=== PATIENT | male | born 1960 | race Caucasian/White ===

== ENCOUNTER 2021-01-28 09:10 | Emergency (ER) | payer BC ==
[~2021-01-28] VITALS: Ht 175.3 cm; Wt 65.8 kg
[2021-01-28] MEDS ORDERED: KETOROLAC TROMETHAMINE 15 MG INJ IVP ONE ×2 (09:30→10:45)
[2021-01-28] MEDS ORDERED: ONDANSETRON 4 MG/2 ML VIAL IV ONE ×2 (09:30→10:45)
[2021-01-28] MEDS ORDERED: IV NORMAL SALINE 1000 ML BAG IV ONE (09:30)
[2021-01-28] MEDS ORDERED: ONDANSETRON 4 MG/2 ML VIAL ONE ×2 (09:31→10:54)
[2021-01-28] MEDS ORDERED: KETOROLAC TROMETHAMINE 15 MG INJ ONE ×2 (09:31→10:51)
[2021-01-28 09:43] LABS: HEMATOCRIT 45.1 % (36.7-47.1); PLATELET COUNT (AUTO) 186 K/uL (152-348)
[2021-01-28 09:49] LABS: CREATININE 0.9 mg/dL (0.6-1.3); POTASSIUM 3.6 mmol/L (3.5-5.1)
[2021-01-28 09:54] LABS: BILIRUBIN,DIRECT 0.1 mg/dL (0.0-0.2); BILIRUBIN,TOTAL 0.6 mg/dL (0.2-1.0); TOTAL PROTEIN, SERUM 7.8 g/dL (6.4-8.2)
[2021-01-28] MEDS ORDERED: MORPHINE SULFATE 4 MG/1 ML DISP.SYRIN ONE ×3 (09:56→10:53)
[2021-01-28] MEDS ORDERED: MORPHINE SULFATE 4 MG/1 ML DISP.SYRIN IV ONE ×3 (10:00→10:45)
[2021-01-28] MEDS ORDERED: TAMSULOSIN HCL 0.4 MG CAP.SR.24H PO ONE (10:00)
[2021-01-28] MEDS ORDERED: TAMSULOSIN HCL 0.4 MG CAP.SR.24H ONE (10:03)
[2021-01-28] MEDS ORDERED: CEphaleXIN 500 MG CAPSULE PO ONE (11:30)
[2021-01-28 11:33] LABS: *BILIRUBIN,URIN NEGATIVE (NEGATIVE); *BLOOD, URINE 3+ (NEGATIVE); *CLARITY,URINE CLEAR (CLEAR); *COLOR,URINE YELLOW (YELLOW); *KETONES,URINE NEGATIVE (NEGATIVE); *UROBILINOGEN,URINE 0.2 E.U./dl (NORMAL); LEUKOCYTE ESTERASE ,URINE NEGATIVE (NEGATIVE); NITRITE, URINE NEGATIVE (NEGATIVE); PH,URINE 6.5 (5.0-8.0); UGLUCOSE NEGATIVE (NEGATIVE)
[2021-01-28] MEDS ORDERED: CEphaleXIN 500 MG CAPSULE ONE (11:38)
[2021-01-28 11:45] LABS: *AMPHETAMINE, URINE NEGATIVE (NEGATIVE); *CANNABINOID, URINE NEGATIVE (NEGATIVE); *COCCAINE, URINE NEGATIVE (NEGATIVE); *OPIATE, URINE POSITIVE (NEGATIVE); *PHENCYCLIDINE SCREEN,URINE NEGATIVE (NEGATIVE)
[2021-01-28] MEDS ORDERED: OXYCODONE/APAP 5-325 MG TABLET PO ONE (11:45)
[2021-01-28 11:46] LABS: BACTERIA,URINE NONE SEEN /HPF (NONE SEEN); RBC,URINE 20-50 /HPF (0-3); SQUAMOUS EPITHELIAL CELL,UR NONE SEEN /HPF (NONE SEEN); WBC,URINE 0-3 /HPF (0-3)
[2021-01-28] MEDS ORDERED: OXYCODONE/APAP 5-325 MG TABLET ONE (11:54)
[2021-01-28 12:02] VITALS: BP 140/63
[2021-01-28] MEDS ORDERED: CEPH500C2 PO (12:04)
[2021-01-28] MEDS ORDERED: IBUP-1955 PO (12:04)
[2021-01-28] MEDS ORDERED: TAMS-3 PO (12:04)
[2021-01-28] MEDS ORDERED: OXYC-128 PO (12:04)
[2021-01-28] MEDS ORDERED: ONDA4TAB5 PO (12:12)
== END 2021-01-28 12:20 | disposition home or self-care (01) ==
LOC: ER 09:10
DX: N13.2 Hydronephrosis with renal and ureteral calculous obstruction (principal); K57.30 Diverticulosis of large intestine without perforation or abscess without bleeding; Z98.1 Arthrodesis status
CPT/HCPCS: 36415; 74176; 80048; 80076; 80307; 81001; 83690; 85025; 96361; 96374; 96375; 96376; 99284; J1885 ×2; J2270 ×3; J2405 ×2; A4663; J7030

== ENCOUNTER 2021-03-14 16:20 | Emergency (ER) | payer BC ==
[~2021-03-14] VITALS: Ht 175.3 cm; Wt 65.3 kg
[~2021-03-14 16:20] MED LIST: CEPH500C2 PO; IBUP-1955 PO; ONDA4TAB5 PO; OXYC-128 PO; TAMS-3 PO
[2021-03-14] MEDS ORDERED: CEFTIN PO (16:49)
[2021-03-14] MEDS ORDERED: ACET-2154 PO (16:50)
[2021-03-14] MEDS ORDERED: CEFTRIAXONE 1 G in IV DEXTROSE 5% 50 ML IV ONE (17:45)
[2021-03-14] MEDS ORDERED: IV NORMAL SALINE 1000 ML BAG IV ONE (17:45)
[2021-03-14 17:55] LABS: *BLOOD, URINE 2+ (NEGATIVE); *CLARITY,URINE CLEAR (CLEAR); *COLOR,URINE YELLOW (YELLOW); *KETONES,URINE TRACE (NEGATIVE); *UROBILINOGEN,URINE 0.2 E.U./dl (NORMAL); LEUKOCYTE ESTERASE ,URINE TRACE (NEGATIVE); NITRITE, URINE NEGATIVE (NEGATIVE); PH,URINE 5.5 (5.0-8.0); UGLUCOSE NEGATIVE (NEGATIVE)
[2021-03-14] MEDS ORDERED: CEFTRIAXONE /D5W 50ML IVPB **ER PYXIS IV ONE (17:55)
[2021-03-14 17:56] LABS: *BILIRUBIN,URIN 1+ (NEGATIVE)
[2021-03-14 18:07] LABS: BACTERIA,URINE FEW /HPF (NONE SEEN); SQUAMOUS EPITHELIAL CELL,UR FEW /HPF (NONE SEEN); URINE AMORPHOUS URATE FEW /HPF; WBC,URINE 50-80 /HPF (0-3)
[2021-03-14 18:12] LABS: HEMATOCRIT 39.8 % (36.7-47.1); MEAN CORPUSCULAR HEMOGLOBIN 30.8 uug (23.8-33.4); MEAN CORPUSCULAR VOLUME 88.1 fL (73.0-96.2); PLATELET COUNT (AUTO) 185 K/uL (152-348)
[2021-03-14 18:20] LABS: CREATININE 0.8 mg/dL (0.6-1.3); POTASSIUM 3.8 mmol/L (3.5-5.1)
[2021-03-14 18:32] LABS: BILIRUBIN,DIRECT 0.2 mg/dL (0.0-0.2); BILIRUBIN,TOTAL 0.7 mg/dL (0.2-1.0); TOTAL PROTEIN, SERUM 7.8 g/dL (6.4-8.2)
[2021-03-14 19:01] VITALS: BP 121/73
--- NOTE | 2021-03-14 19:04 | NUR ---
Patient discharged to home in stable condition. Written and verbal after care instructions given. Patient verbalizes understanding of instructions. Stressed follow up or return to ER for worsening s/s.
--- NOTE | 2021-03-14 19:24 | NUR ---
Patient discharged to home in stable condition. A/o X4, denies any pain/discomnfort upon discharge. Written and verbal after care instructions given. Patient verbalizes understanding of instructions. Stressed follow up or return to ER for worsening s/s. Steady gait.
== END 2021-03-14 19:24 | disposition home or self-care (01) ==
LOC: ER 16:21
DX: N39.0 Urinary tract infection, site not specified (principal); R31.0 Gross hematuria; R50.9 Fever, unspecified; Z20.822 Contact with and (suspected) exposure to COVID-19; Z87.442 Personal history of urinary calculi; Z82.49 Family history of ischemic heart disease and other diseases of the circulatory system; Z88.2 Allergy status to sulfonamides; Z98.1 Arthrodesis status
CPT/HCPCS: 36415; 71045; 80048; 80076; 81001; 83605; 83880; 84145; 84484; 85025; 87040 ×2; 87086; 87426; 93005; 96365; 99285; J0696; 70030-TC; A4663; J7030